=== PATIENT | female | born 1955 | race Caucasian/White ===

== ENCOUNTER 2017-09-21 22:57 | Inpatient (IN) | END 2017-09-26 14:04 | disposition home or self-care (01) | DRG 392 ==

== ENCOUNTER 2017-12-20 09:48 | Day surgery (SDC) | END 2017-12-20 16:30 | disposition home or self-care (01) ==

== ENCOUNTER 2018-01-07 09:16 | Day surgery (SDC) | END 2018-01-07 14:03 | disposition home or self-care (01) ==